=== PATIENT | female | born 1975 | race Hispanic/Latino ===

== ENCOUNTER 2016-12-07 00:31 | Emergency (ER) | payer MEDICAID ==
--- NOTE | 2016-12-07 02:04 | Emergency Department Report ---
- General Chief complaint: Wound/Laceration Stated complaint: CK FOR CELLULITIS RT LEG Time Seen by Provider: 12/07/16 01:54 Source: patient Mode of arrival: Ambulatory Limitations: No Limitations - History of Present Illness Initial comments: This is a 41-year-old female nontoxic, well nourished in appearance, no acute signs of distress the [place] ED complaining of right lower leg redness with purulent drainage 2 days. Patient stated she was seen at an urgent care and was diagnosed with cellulitis and received clindamycin. Patient stated redness is improving but stated that it has started to drain. Patient denies any pain to the area. Denies any numbness, tingling, decreased range of motion, joint swelling, joint redness, abnormal gait, fever, chills, headache, chest pain, shortness of breath, nausea or vomiting. She denies stiff neck. Allergies shellfish. Denies past medical history besides GERD. MD complaint: other (cellulitis) -: Gradual, days(s) (2) Tetanus Up to Date: yes Location: [facility] Severity scale (0 -10): 0 Consistency: constant Improves with: none Worsens with: none Context: none Associated symptoms: denies other symptoms Treatments Prior to Arrival: none, antibiotic (clindamycin 300 mg) - Related Data Home Medications Medication Instructions Recorded Confirmed Last Taken Ergocalciferol [Vitamin D2] 50,000 unit PO QWEEK 12/11/13 12/11/13 12/06/13 Ranitidine HCl [Zantac 75 MG TAB] 75 mg PO PREOP PRN 12/11/13 12/11/13 12/11/13 07:50 diphenhydrAMINE [Benadryl] 25 mg PO PREOP PRN 12/11/13 12/11/13 12/11/13 07:50 predniSONE [Deltasone] 50 mg PO PREOP PRN 12/11/13 12/11/13 12/11/13 07:50 Allergies Allergy/AdvReac Type Severity Reaction Status Date / Time shellfish derived Allergy Severe Anaphylaxis Verified 12/11/13 10:15 Abscess Boil HPI - HPI Chief Complaint: Wound/Laceration Stated Complaint: CK FOR CELLULITIS RT LEG Time Seen by Provider: 12/07/16 01:54 Home Medications: Home Medications Medication Instructions Recorded Confirmed Last Taken Ergocalciferol [Vitamin D2] 50,000 unit PO QWEEK 12/11/13 12/11/13 12/06/13 Ranitidine HCl [Zantac 75 MG TAB] 75 mg PO PREOP PRN 12/11/13 12/11/13 12/11/13 07:50 diphenhydrAMINE [Benadryl] 25 mg PO PREOP PRN 12/11/13 12/11/13 12/11/13 07:50 predniSONE [Deltasone] 50 mg PO PREOP PRN 12/11/13 12/11/13 12/11/13 07:50 Allergies/Adverse Reactions: Allergies Allergy/AdvReac Type Severity Reaction Status Date / Time shellfish derived Allergy Severe Anaphylaxis Verified 12/11/13 10:15 ED Review of Systems ROS: Stated complaint: CK FOR CELLULITIS RT LEG Other details as noted in HPI Constitutional: denies: chills, fever Eyes: denies: eye pain, eye discharge, vision change ENT: denies: ear pain, throat pain Respiratory: denies: cough, shortness of breath, wheezing Cardiovascular: denies: chest pain, palpitations Endocrine: no symptoms reported Gastrointestinal: denies: abdominal pain, nausea, diarrhea Genitourinary: denies: urgency, dysuria, discharge Musculoskeletal: denies: back pain, joint swelling, arthralgia Skin: denies: rash, lesions Neurological: denies: headache, weakness, paresthesias Psychiatric: denies: anxiety, depression Hematological/Lymphatic: denies: easy bleeding, easy bruising ED Past Medical Hx - Past Medical History Previous Medical History?: Yes Hx Hypertension: No Hx CVA: No Hx Heart Attack/AMI: No Hx Congestive Heart Failure: No Hx Diabetes: No Hx Deep Vein Thrombosis: No Hx Pulmonary Embolism: No Hx GERD: Yes Hx Liver Disease: No Hx Renal Disease: No Hx Sickle Cell Disease: No Hx Arthritis: No Hx Headaches / Migraines: No Hx Seizures: No Hx Kidney Stones: No Hx Psychiatric Treatment: No Hx Asthma: No Hx COPD: No Hx Tuberculosis: No Hx Dementia: No Hx HIV: No - Surgical History Past Surgical History?: Yes Hx Coronary Stent: No Hx Open Heart Surgery: No Hx Pacemaker: No Hx Internal Defibrillator: No Hx Cholecystectomy: No Hx Breast Surgery: No Additional Surgical History: Tonsils removed. Lump removed from left arm. endometrial ablation - Social History Smoking Status: Never Smoker Substance Use Type: None - Medications Home Medications: Home Medications Medication Instructions Recorded Confirmed Last Taken Type Ergocalciferol [Vitamin D2] 50,000 unit PO QWEEK 12/11/13 12/11/13 12/06/13 History Ranitidine HCl [Zantac 75 MG TAB] 75 mg PO PREOP PRN 12/11/13 12/11/13 12/11/13 07:50 History diphenhydrAMINE [Benadryl] 25 mg PO PREOP PRN 12/11/13 12/11/13 12/11/13 07:50 History predniSONE [Deltasone] 50 mg PO PREOP PRN 12/11/13 12/11/13 12/11/13 07:50 History ED Physical Exam - General Limitations: No Limitations General appearance: alert, in no apparent distress - Head Head exam: Present: atraumatic, normocephalic, normal inspection - Eye Eye exam: Present: normal appearance, PERRL, EOMI. Absent: scleral icterus, conjunctival injection, nystagmus, periorbital swelling, periorbital tenderness Pupils: Present: normal accommodation - ENT ENT exam: Present: normal exam, normal orophraynx, mucous membranes moist, TM's normal bilaterally, normal external ear exam - Neck Neck exam: Present: normal inspection, full ROM. Absent: tenderness, meningismus, lymphadenopathy, thyromegaly - Respiratory Respiratory exam: Present: normal lung sounds bilaterally. Absent: respiratory distress, wheezes, rales, rhonchi, stridor, chest wall tenderness, accessory muscle use, decreased breath sounds, prolonged expiratory - Cardiovascular Cardiovascular Exam: Present: regular rate, normal rhythm, normal heart sounds. Absent: bradycardia, tachycardia, irregular rhythm, systolic murmur, diastolic murmur, rubs, gallop - GI/Abdominal GI/Abdominal exam: Present: soft, normal bowel sounds. Absent: distended, tenderness, guarding, rebound, rigid, diminished bowel sounds - Rectal Rectal exam: Present: deferred - Extremities Exam Extremities exam: Present: normal inspection, full ROM, normal capillary refill. Absent: tenderness, pedal edema, joint swelling, calf tenderness - Expanded Lower Extremity Exam Right Hip exam: Present: normal inspection, full ROM, external rotation, internal rotation, pelvic stability. Absent: tenderness, swelling, abrasion, laceration , ecchymosis, deformity, crepidus, dislocation, erythema, shortening Upper Leg exam: Present: normal inspection, full ROM. Absent: tenderness, swelling, abrasion, laceration, ecchymosis, deformity, crepidus, dislocation, erythema Knee exam: Present: normal inspection, full ROM, full knee extension. Absent: tenderness, swelling, abrasion, laceration, ecchymosis, deformity, crepidus, dislocation, erythema, effusion, pain w/ pronation/supination, posterior draw sign, pain/laxity with valgus, pain/laxity with varus Lower Leg exam: Present: normal inspection, full ROM, erythema. Absent: tenderness, swelling, abrasion, laceration, ecchymosis, deformity, crepidus, dislocation, palpable cord, Beckie's sign Ankle exam: Present: normal inspection, full ROM. Absent: tenderness, swelling , abrasion, laceration, ecchymosis, deformity, crepidus, dislocation, erythema, anterior draw sign Foot/Toe exam: Present: normal inspection, full ROM. Absent: tenderness, swelling, abrasion, laceration, ecchymosis, deformity, crepidus, dislocation, erythema, amputation, puncture wound, foreign body, calcaneal tenderness, tenderness at base of 5th metatarsal, nail avulsion, subungual hematoma Neuro vascular tendon exam: Present: no vascular compromise. Absent: pulse deficit, abnormal cap refill, motor deficit, sensory deficit, tendon deficit, extremity cold to touch, pallor, abnormal 2-point discrimination, decreased fine /light touch, foot drop, peroneal nerve deficit, significant pain with passive ROM of distal joint Gait: Positive: observed and normal 1 - 4 cm circular Erythema noted with clear drainage. Consistent with cellulitis. Not warm to touch. Nontender. No induration or swelling noted. No abscess formation. No fluctuance. - Back Exam Back exam: Present: normal inspection, full ROM. Absent: tenderness, CVA tenderness (R), CVA tenderness (L), muscle spasm, paraspinal tenderness, vertebral tenderness, rash noted - Neurological Exam Neurological exam: Present: alert, oriented X3, CN II-XII intact, normal gait, reflexes normal - Psychiatric Psychiatric exam: Present: normal affect, normal mood - Skin Skin exam: Present: warm, dry, intact, normal color. Absent: rash - Other Other exam information: 4 cm circular Erythema noted with clear drainage to the right distal tib-fib region. Consistent with healing cellulitis. Not warm to touch. Nontender. No induration or swelling noted. No abscess formation. No fluctuance. ED Course Vital Signs 12/07/16 00:40 Temperature 98.5 F Pulse Rate 72 Respiratory 18 Rate Blood Pressure 129/59 O2 Sat by Pulse 97 Oximetry - Reevaluation(s) Reevaluation #1: 12/07/16 02:07 Patient is speaking full sentences with no signs of distress. - Consultations Consultation #1: 12/07/16 04:36 Dr. Foley has been consulted about patient and examined patient. Agrees to the plan of care of I/D with follow-up. - I & D Left Ankle Type of Procedure: Complex Site: left distal tib-fib region Blade Size: 11 I & D Procedure: betadine prep, sterile drapes applied, sterile dressing applied Progress: Under sterile field, I used Betadine to cleanse the area. I then used 1% lidocaine plain with 25-gauge 5/8 needle to inject area for anesthetic purposes. Total volume injected 3 mL. I then used an 11 blade to make a 1 cm incision. About 1 mL of purulent drainage has been noted. I then used a hemostat to break the abscess formation. I then used sterile 0.9% normal saline flush to flush the wound with total volume of 40 mL used. I then put a 1 /4 iodoform packing to the incision. A sterile 4 x 4 with tape has been applied as dressing. Bleeding is under control. Patient tolerated the procedure well with no signs of distress noted. ED Medical Decision Making - Lab Data Result diagrams: 12/07/16 02:06 12/07/16 02:06 - Medical Decision Making 41-year-old female that presents with a abscess and healing cellulitis. Incision and drainage has been performed. Patient thought her well. Patient was instructed to return in 2 days for packing removal and reassessment of the abscess. Patient was instructed to continue taking clindamycin that was prescribed. At time time of discharge, the patient does not seem toxic or ill in appearance. No acute signs of distress noted. Patient agrees to discharge treatment plan of care. No further questions noted by the patient. CBC, BMP, likely acid, x-ray has been obtained with negative findings of any abnormalities. Critical care attestation.: If time is entered above; I have spent that time in minutes in the direct care of this critically ill patient, excluding procedure time. ED Disposition Clinical Impression: Abscess Cellulitis Qualifiers: Site of cellulitis: unspecified site Qualified Code(s): L03.90 - Cellulitis, unspecified Disposition: TO HOME OR SELFCARE Is pt being admited?: No Does the pt Need Aspirin: No Condition: Stable Instructions: Cellulitis (ED), Abscess Incision and Drainage (ED), Abscess (ED) Additional Instructions: Continue taking clindamycin as prescribed to you. Return in 2 days for packing removal and reassessment of the wound. Referrals: [facility] [Referring] - 3-5 Days SISI DURAND MD [Staff Physician] - 3-5 Days [facility] [Outside] - 3-5 Days [facility] [Outside] - 3-5 Days Forms: Work/School Release Form(ED)
[2016-12-07 02:31] LABS: Basophils % (Auto) 0.7 % (0.0-1.8); Eosinophils % (Auto) 1.2 % (0.0-4.3); Hematocrit 40.6 % (30.3-42.9); Hemoglobin 13.8 gm/dl (10.1-14.3); Mean Corpuscular HGB Conc 34 % (30-34); Mean Corpuscular Hemoglobin 29 pg (28-32); Mean Corpuscular Volume 86 fl (79-97); Platelet Count 239 K/mm3 (140-440); Red Blood Count 4.72 M/mm3 (3.65-5.03); Red Cell Distribution Width 12.9 % (13.2-15.2); White Blood Count 9.9 K/mm3 (4.5-11.0)
[2016-12-07 02:49] LABS: BUN/Creatinine Ratio 22.85; Blood Urea Nitrogen 16 mg/dL (7-17); Calcium 9.3 mg/dL (8.4-10.2); Carbon Dioxide 26 mmol/L (22-30); Creatine Kinase 58 units/L (30-135); Glucose 96 mg/dL (65-100)
[2016-12-07 02:57] LABS: Anion Gap 18 mmol/L; Chloride 103.2 mmol/L (98-107); Potassium 3.9 mmol/L (3.6-5.0); Sodium 143 mmol/L (137-145)
--- NOTE | 2016-12-07 04:04 | XRay Report ---
FINAL REPORT PROCEDURE: XR ANKLE 3+V RT TECHNIQUE: Right ankle radiographs, AP, lateral, and oblique views. CPT 61377 HISTORY: pain r/o osteomyelitis....RT ANKLE PAIN COMPARISON: No prior studies are available for comparison. FINDINGS: Fracture (s) and/or Dislocation(s): None. There an accessory ossicle at the medial malleolus. Alignment: Normal . Joint space(s): Normal . Soft tissues: Normal . Bone mineralization: Normal . Foreign bodies: None . Calcaneal spurring: There are calcaneal spurs.. IMPRESSION: There is no acute bony or soft tissue abnormality..
--- NOTE | 2016-12-07 04:06 | XRay Report ---
FINAL REPORT PROCEDURE: XR TIBIA FIBULA 2V RT TECHNIQUE: RIGHT tibia and fibula radiographs, AP and lateral views. CPT 47897 HISTORY: pain r/o osteomyelitis...RT TIB/FIB PAIN COMPARISON: No prior studies are available for comparison. FINDINGS: Fracture (s) and/or Dislocation(s): None . Joint space(s): Normal . Soft tissues: Normal . Bone mineralization: Normal . Foreign bodies: None . IMPRESSION: Normal Examination.
[2016-12-07] MEDS: TORADOL IM ONE ×2 (05:20)
[2016-12-07] MEDS ORDERED: MOTRIN PO ONE (05:25)
[2016-12-07] MEDS ORDERED: MOTRIN ONE (05:26)
[2016-12-07 05:57] VITALS: BP 124/66
== END 2016-12-07 05:52 | disposition home or self-care (01) ==
LOC: ED 00:31
DX: L03.115 Cellulitis of right lower limb (principal); K21.9 Gastro-esophageal reflux disease without esophagitis; Z91.013 Allergy to seafood
CPT/HCPCS: 36415; 80048; 82140; 82550; 85025; 96372; J1885